=== PATIENT | female | born 1945 | race Caucasian/White ===

== ENCOUNTER → 2018-05-02 | Outpatient (CLI) | payer OTHER ==
[~2018-05-02] MED LIST: AMLO5TAB7 PO; ASPI-1197 PO; ATOR40TA71 PO; CALC1TAB2 PO; CARV6.25 PO; FENO145T37 PO; GLIM2TAB3 PO; INSU100V12 SQ; LEVO50TA11 PO; LOSA1TAB42 PO; METF-444 PO; [UNRECOGNIZED DRUG - CODE] PO
== END | disposition home or self-care (01) ==
LOC: OIH 08:19
PROVIDERS: ATTEND Family Medicine
DX: M17.11 Unilateral primary osteoarthritis, right knee (principal)
CPT/HCPCS: 73562

== ENCOUNTER → 2018-11-13 | Outpatient (CLI) | payer OTHER ==
[~2018-11-13] MED LIST changes: -AMLO5TAB7 PO; +AMLO5TAB9 PO; +CHOL200016 PO; -[UNRECOGNIZED DRUG - CODE] PO
== END | disposition home or self-care (01) ==
LOC: SHCH 13:56
PROVIDERS: ATTEND Internal Medicine Cardiovascular Disease
DX: I35.1 Nonrheumatic aortic (valve) insufficiency (principal); I35.8 Other nonrheumatic aortic valve disorders
CPT/HCPCS: 93306

== ENCOUNTER → 2020-07-23 | Outpatient (CLI) | payer OTHER ==
[~2020-07-23] MED LIST changes: +AMLO-257 PO; -AMLO5TAB9 PO; +FENO145T26 PO; -FENO145T37 PO; -GLIM2TAB3 PO; +GLIM2TAB30 PO
== END | disposition home or self-care (01) ==
LOC: SHCH 15:44
PROVIDERS: ATTEND Internal Medicine Cardiovascular Disease
DX: I35.0 Nonrheumatic aortic (valve) stenosis (principal); R06.00 Dyspnea, unspecified
CPT/HCPCS: 93306; 93356